=== PATIENT | female | born 1950 | race Caucasian/White ===

== ENCOUNTER 2018-07-04 18:09 | Emergency (ER) | payer OTHER ==
[~2018-07-04] VITALS: Ht 154.9 cm; Wt 105.7 kg
[2018-07-04 18:56] VITALS: Ht 154.9 cm; Wt 105.7 kg
[2018-07-04 20:01] LABS: BASOPHIL % 0.4 % (0-2); PLATELET COUNT 282 x10^3mcL (130-400)
[2018-07-04 20:04] LABS: RED CELL DISTRIBUTION WIDTH 15.9 % (11.5-14.5)
[2018-07-04 20:09] LABS: CALCIUM 9.2 mg/dL (8.5-10.1); CARBON DIOXIDE 26.4 mmol/L (21-32); CREATININE SERUM 1.7 mg/dL (0.6-1.0); POTASSIUM SERUM 4.5 mmol/L (3.5-5.1)
[2018-07-04 20:16] LABS: ALBUMIN 3.5 g/dL (3.4-5.0); BILIRUBIN TOTAL 0.24 mg/dL (0.20-1.00)
[2018-07-04 20:31] LABS: TOTAL PROTEIN, SERUM 8.9 g/dL (6.4-8.2)
[2018-07-04 22:31] VITALS: BP 139/68
== END 2018-07-04 22:31 | disposition home or self-care (01) ==
LOC: ED 18:09
PROVIDERS: Emergency Medicine
DX: M54.41 Lumbago with sciatica, right side (principal); I10 Essential (primary) hypertension; E11.9 Type 2 diabetes mellitus without complications; E78.00 Pure hypercholesterolemia, unspecified
CPT/HCPCS: 36415; J1885

== ENCOUNTER 2018-09-07 22:30 | Inpatient (IN) | payer OTHER ==
[~2018-09-07] VITALS: Ht 154.9 cm; Wt 107.2 kg
[2018-09-07 22:33] VITALS: Ht 154.9 cm; Wt 107.2 kg
[2018-09-07 23:34] LABS: CALCIUM 8.6 mg/dL (8.5-10.1); CARBON DIOXIDE 25.2 mmol/L (21-32); CREATININE SERUM 2.5 mg/dL (0.6-1.0); POTASSIUM SERUM 4.9 mmol/L (3.5-5.1)
[2018-09-07 23:36] LABS: BASOPHIL % 0.3 % (0-2); PLATELET COUNT 272 x10^3mcL (130-400)
[2018-09-07 23:51] LABS: RED CELL DISTRIBUTION WIDTH 15.8 % (11.5-14.5)
[2018-09-08 00:01] LABS: ALBUMIN 3.2 g/dL (3.4-5.0); BILIRUBIN TOTAL 0.2 mg/dL (0.20-1.00); TOTAL PROTEIN, SERUM 7.8 g/dL (6.4-8.2)
[2018-09-08] MEDS ORDERED: GOOD NEIGHBOR P20 M2 PO (01:13)
[2018-09-08] MEDS ORDERED: ATENOLOL50 MG PO (01:13)
[2018-09-08] MEDS ORDERED: ATORVASTATIN CA40 M1 PO (01:13)
[2018-09-08] MEDS ORDERED: NOR5 PO (01:13)
[2018-09-08] MEDS ORDERED: LOSARTAN POTASS50 M1 PO (01:13)
[2018-09-08] MEDS ORDERED: ALLOPURINOL100 MG PO (01:14)
[2018-09-08] MEDS ORDERED: ASPIR 8181 MG PO (01:14)
[2018-09-08 02:39] VITALS: BP 121/53
[2018-09-08 02:41] LABS: MAGNESIUM 2.2 mg/dL (1.8-2.4)
[2018-09-08 02:46] LABS: CHOLESTEROL/HDL RATIO 3.6
[2018-09-08 06:03] VITALS: BP 98/50
[2018-09-08 09:51] VITALS: BP 118/60
[2018-09-08 13:45] VITALS: BP 129/58
[2018-09-08 17:52] VITALS: BP 141/58
[2018-09-08 19:15] VITALS: BP 118/50
[2018-09-08 21:39] LABS: microscopic required? NO
[2018-09-08 21:44] LABS: UA SPECIFIC GRAVITY <=1.005 (1.005-1.035); urine erythrocyte NEGATIVE (NEGATIVE)
[2018-09-08 21:52] LABS: AMPHETAMINE QUAL UR NONE DETECTED (See below)
[2018-09-09 05:47] VITALS: BP 131/49
[2018-09-09 07:06] LABS: CALCIUM 9.2 mg/dL (8.5-10.1); CARBON DIOXIDE 22.6 mmol/L (21-32); POTASSIUM SERUM 4.5 mmol/L (3.5-5.1)
[2018-09-09 08:29] LABS: BASOPHIL % 0.4 % (0-2); PLATELET COUNT 257 x10^3mcL (130-400)
[2018-09-09 09:48] VITALS: BP 120/39
[2018-09-09 17:19] VITALS: BP 120/49
[2018-09-09 19:10] VITALS: BP 119/48
== END 2018-09-09 21:45 | disposition home or self-care (01) | DRG 311 ==
LOC: ED 22:30 → DU 09-08 01:11
PROVIDERS: Emergency Medicine; ADMIT Internal Medicine
DX: I24.9 Acute ischemic heart disease, unspecified (principal); I25.10 Atherosclerotic heart disease of native coronary artery without angina pectoris; I13.10 Hypertensive heart and chronic kidney disease without heart failure, with stage 1 through stage 4 chronic kidney disease, or unspecified chronic kidney disease; N18.3 Chronic kidney disease, stage 3 (moderate); E11.9 Type 2 diabetes mellitus without complications; E78.5 Hyperlipidemia, unspecified
CPT/HCPCS: 82962; 83880; A9500; J1815; J1940; J2785; Q0092

== ENCOUNTER 2019-02-21 19:47 | Emergency (ER) | payer OTHER ==
[~2019-02-21 19:47] MED LIST: ALLOPURINOL100 MG PO; ASPIR 8181 MG PO; ATENOLOL50 MG PO; ATORVASTATIN CA40 M1 PO; GOOD NEIGHBOR P20 M2 PO; LOSARTAN POTASS50 M1 PO; NOR5 PO
== END 2019-02-21 21:00 | disposition left against medical advice (07) ==
LOC: ED 19:47
DX: Z53.21 Procedure and treatment not carried out due to patient leaving prior to being seen by health care provider (principal)